=== PATIENT | female | born 1980 | race Caucasian/White ===

== ENCOUNTER 2016-09-14 14:39 | Emergency (ER) | payer SELFPAY ==
--- NOTE | 2016-09-14 14:45 | ED Physician Chart ---
Chief Complaint/HPI - Patient Information Date Seen:: 09/14/16 Time Seen:: 14:44 Chief Complaint:: abdominal pain History of Present Illness:: 36-year-old female, otherwise healthy, complains of acute, constant, moderate to severe, aching, nonradiating, epigastric abdominal pain that started 2 days ago. Has associated nausea but no vomiting, also has associated headache. Historian:: Patient Review:: Nurse's Note Reviewed Review of Systems - Review of Systems Other: Complete system review otherwise unremarkable except as noted in HPI. Past Medical History - Past Medical History Past Medical History: No significant medical hx Family History: None Social History: Non Smoker, No Alcohol, No Drug Use, Surgical History: Cholecystectomy Psychiatricy History: None Medication: None Family Medical History - Family Member Mother Ethnicity: Hx Family Cancer: No Hx Family Coronary Artery Disease: No Hx Family Congestive Heart Failure: No Hx Family Hypertension: No Physical Exam - Physical Examination Other:: INITIAL VITAL SIGNS: Reviewed by me GENERAL: Alert and interactive. No acute distress HEAD: Head is normocephalic and atraumatic EYES: EOMI. . No scleral icterus. No conjunctival injection ENT: Moist mucous membranes. NECK: Supple. No masses. Full range of motion RESPIRATORY: No tachypnea. Clear breath sounds bilaterally. No wheezing, rales, or rhonchi CV: Regular rate and rhythm. No murmurs, rubs, or gallops ABDOMEN: Soft, non-distended, non-tender. Epigastric tenderness with guarding on deep palpation. No rebound. No masses. EXTREMITIES: No deformity. No cyanosis. No edema. SKIN: Warm and dry. No obvious rashes. NEUROLOGIC: Alert and oriented. Face is symmetric. Speech is normal. Moves all extremities equally. Motor and sensory distally intact. Labs/Radiology/EKG Results - Lab Results Results: Lab Results 09/14/16 09/14/16 09/14/16 Range/Units 14:55 14:55 14:55 WBC 9.0 (4.8-10.8) Th/cmm RBC 4.83 (3.80-5.10) Mil/cmm Hgb 13.5 (11.7-15.5) gm/dL Hct 40.5 (35.0-45.0) % MCV 83.9 (81-100) fl MCH 27.9 (27.0-31.0) pg MCHC Differential 33.2 (28.0-36.0) pg RDW 12.9 (11.5-20.0) % Plt Count 263 (150-400) Th/cmm MPV 7.7 fl Neutrophils (Manual) 54 (40-80) % Lymphocytes 25 (20-50) % Monocytes 6 (2-10) % Eosinophils 13 H (0-5) % Basophils 2 (0-3) % Platelet Estimate ADEQUATE (NORMAL) Platelet Morphology NORMAL (NORMAL) RBC Morph Micro Appear NORMAL (NORMAL) Sodium 134 L (136-145) mEq/L Potassium 3.4 L (3.5-5.1) mEq/L Chloride 102 (98-107) mEq/L Carbon Dioxide 27.8 (21.0-31.0) mEq/L Anion Gap 7.6 (7.0-16.0) BUN 11 (7-25) mg/dL Creatinine 0.6 (0.6-1.2) mg/dL Est GFR ( Amer) > 60.0 (>90) ml/min Est GFR (Non-Af Amer) > 60.0 ml/min BUN/Creatinine Ratio 18.3 Glucose 102 (70-105) mg/dL Calcium 9.6 (8.6-10.3) mg/dL Total Bilirubin 0.4 (0.3-1.0) mg/dL AST 17 (13-39) U/L ALT 22 (7-52) U/L Alkaline Phosphatase 47 (34-104) U/L Total Protein 7.4 (6.0-8.3) gm/dL Albumin 4.2 (3.7-5.3) gm/dL Globulin 3.2 gm/dL Albumin/Globulin Ratio 1.3 (1.0-1.8) Lipase 16 (11-82) U/L Serum , Qual NEGATIVE (NEGATIVE) - Radiology Results Results: Ultrasound abdomen NAD - EKG Interpretations Comments:: 12-lead EKG Interpretation by Ovidio Alberto MD: Normal Sinus Rhythm with ventricular rate of 72 beats per minute Normal axis Normal intervals No acute ST or T wave changes. No obvious STEMI ED Septic Shock - . Is Septic Shock (SBP<90, OR Lactate>4 mmol\L) present?: No Reassessment (Disposition) - Reassessment Reassessment:: Patient appears to have gastritis. Ultrasound unremarkable. Has a history of cholecystectomy. Labs are essentially unremarkable. Discussed all lab and ultrasound findings with the patient. Gave GI cocktail, IV Toradol, IV normal saline, IV antiemetics, vision felt much relief. Prescribed Pepcid and Zofran. Follow up PCP 1-2 days. Return to ER precautions given. Patient understands and agrees the plan. Reassessment Condition:: Improved - Diagnosis Diagnosis:: Acute gastritis Nausea Cephalalgia Hypokalemia - Aftercare/Follow up Instructions Aftercare/Follow-Up Instructions:: Counseled pt regarding lab results/diagnosis & need follow up, Refer to Discharge Instructions Medication Prescribed:: Pepcid Zofran - Patient Disposition Discharge/Transfer:: Home Time:: 15:33 Condition at Disposition:: Improved ED Discharge Plan - Patient Disposition Admit/Discharge/Transfer: PT DISCHARGED HOME Condition at Disposition: Improved Instructions: Gastritis, Adult, [id number]
[2016-09-14] MEDS ORDERED: Sodium Chloride 0.9% 1,000 ML IV ONE (14:46)
[2016-09-14] MEDS ORDERED: Prochlorperazine 5 mg/mL 2mL Vial IVP STA (14:49)
[2016-09-14 15:07] LABS: HEMATOCRIT 40.5 % (35.0-45.0); HEMOGLOBIN 13.5 gm/dL (11.7-15.5); MEAN CELL VOLUME 83.9 fl (81-100); MEAN CORPUSCULAR HEMOGLOBIN 27.9 pg (27.0-31.0); MEAN CORPUSCULAR HGB CONC 33.2 pg (28.0-36.0); MEAN PLATELET VOLUME 7.7 fl; PLATELET COUNT 263 Th/cmm (150-400); RED BLOOD COUNT 4.83 Mil/cmm (3.80-5.10); RED CELL DISTRIBUTION WIDTH 12.9 % (11.5-20.0)
[2016-09-14 15:22] LABS: ANION GAP 7.6 (7.0-16.0); BUN - UREA NITROGEN 11 mg/dL (7-25); BUN/CREATININE RATIO 18.3; CARBON DIOXIDE 27.8 mEq/L (21.0-31.0); CHLORIDE 102 mEq/L (98-107); CREATININE - SERUM 0.6 mg/dL (0.6-1.2); GLUCOSE 102 mg/dL (70-105); POTASSIUM SERUM 3.4 mEq/L (3.5-5.1); SODIUM SERUM 134 mEq/L (136-145)
[2016-09-14 15:23] LABS: ALB/GLOB RATIO 1.3 (1.0-1.8); ALKALINE PHOSPHATASE 47 U/L (34-104); BILIRUBIN,TOTAL 0.4 mg/dL (0.3-1.0); CALCIUM SERUM 9.6 mg/dL (8.6-10.3); LIPASE 16 U/L (11-82); SGOT 17 U/L (13-39); SGPT/ALT 22 U/L (7-52)
[2016-09-14 15:26] LABS: BASOPHIL 2 % (0-3); EOSINOPHIL 13 % (0-5); NEUTROPHILS 54 % (40-80); PLATELET ESTIMATE ADEQUATE (NORMAL); PLATELET MORPHOLOGY NORMAL (NORMAL); TOTAL CELLS COUNTED 100
[2016-09-14] MEDS ORDERED: Dexamethasone Sodium Phos 10 mg/mL PF Vial ONE (15:29)
[2016-09-14] MEDS ORDERED: Dexamethasone Sodium Phos 4 mg/mL Vial IVP STA (15:33)
[2016-09-14] MEDS ORDERED: Maalox 30 mL Cup PO STA (15:33)
[2016-09-14] MEDS ORDERED: Donnatal Liq 5 ML UDC PO STA (15:33)
[2016-09-14] MEDS ORDERED: Donnatal Liq 5 ML UDC ONE ×2 (15:40→15:41)
--- NOTE | 2016-09-14 15:41 | Diagnostic Imaging Report ---
Ultrasound abdomen, Limited History: Abdominal pain. History of cholecystectomy Comparison: None Technique: Sonography of the right upper quadrant was performed in multiple planes. Findings: The liver demonstrates normal echogenicity and measures 14.1 cm. No evidence of focal lesions. The gallbladder was not visualized. The common bile duct measures 4 mm. Assessment of the pancreas is limited due to bowel gas. IMPRESSION: Nonvisualization of the gallbladder compatible with provided history of cholecystectomy. The common bile duct measures 4 mm.
[2016-09-14] MEDS ORDERED: Maalox 30 mL Cup ONE (15:45)
== END 2016-09-14 16:16 | disposition home or self-care (01) ==
LOC: ER 14:39
DX: K29.00 Acute gastritis without bleeding (principal); R51 Headache; E87.6 Hypokalemia; Z90.49 Acquired absence of other specified parts of digestive tract
CPT/HCPCS: 99285; 96374; 96375; 76705; 36415; 85007; 85027; 81025; 83690; 80053; J1885; J2405; J7030